=== PATIENT | female | born 1935 | race Caucasian/White ===

== ENCOUNTER 2017-11-12 07:25 | Inpatient (IN) ==
[2017-11-12] MEDS ORDERED: 0.9 % Sodium Chloride 1,000 ML IVC ONE ×2 (07:37→08:28)
[2017-11-12] MEDS ORDERED: Ipratropium/Albuterol Neb 3 ML IH ONE (07:37)
--- NOTE | 2017-11-12 07:45 | Emergency Department Note ---
Disposition Clinical Impression: Hypoxia Pneumonia Qualifiers: Pneumonia type: due to unspecified organism Laterality: right Lung location: lower lobe of lung Qualified Code(s): J18.1 - Lobar pneumonia, unspecified organism Disposition: Admitted As Inpatient Condition: Fair Time of Disposition: 10:00 SOB HPI - General Chief Complaint: ED Dizziness Stated Complaint: KRYSTIAN, dizziness,"cold" Time Seen by Provider: 11/12/17 07:28 Source: patient Mode of arrival: ambulatory Limitations: no limitations Nursing Notes Reviewed: Yes Vital Signs Reviewed: Yes - History of Present Illness Patient is an 82-year-old female with a past medical history of hypertension and anxiety that presents to the ED with chief complaint cough, chills and shortness of breath. Patient states that she developed a cough last Wednesday. States she saw her PCP on Wednesday who told her that her lungs sounded clear and started her on cough medicine. Patient states despite being on the cough medicine her cough has gotten worse and now she is short of breath with chills. Family at bedside and state patient stopped cough medicine yesterday because it was giving her a headache. States she doesn't have a headache now. However, pt does report generalized weakness and feeling very lightheaded during coughing episodes and occasionally with ambulation. Pt Subjective Complaint: shortness of breath, cough Onset (ago): day(s) (6 days) Severity: moderate Consistency/Duration: intermittent, gradually worsening Improves with: nothing Worsens with: nothing Associated symptoms: Reports: denies other symptoms, chest pain (only with coughing), cough. Denies: pain with inspiration, fever, wheezing, sputum production, orthopnea, lower extremity pain, polyuria, polydipsia, parasthesias , palpitations, hemoptysis, diaphoresis, nausea/vomiting, syncope, abdominal pain, rash, sense of impending doom Treatment prior to arrival: none Cough present: Yes Cough Description: Involuntary Cough Frequency: Intermittent Sputum production: No Sputum Amount: None - Related Data Home oxygen amount: none Home Medications Medication Instructions Recorded Confirmed Amlodipine Besylate 10 mg PO DAILY 11/12/17 11/12/17 Calcitonin,[place],Synthetic 1 spr NS AD 11/12/17 11/12/17 [Calcitonin-[place]] Calcium Carbonate/Vitamin D3 1 tab PO TID 11/12/17 11/12/17 [Oyster Shell Calcium-Vit D Tab] LORazepam [Ativan] 1 tab PO BID PRN 11/12/17 11/12/17 Metoprolol Tartrate [Lopressor] 50 mg PO BID 11/12/17 11/12/17 Nortriptyline [Pamelor] 25 mg PO DAILY 11/12/17 11/12/17 Allergies Allergy/AdvReac Type Severity Reaction Status Date / Time codeine Allergy Hives Verified 08/09/16 10:06 Penicillins Allergy Hives Verified 08/09/16 10:06 Sulfa (Sulfonamide Allergy Hives Verified 08/09/16 10:06 Antibiotics) All systems ED: reviewed and negative except as stated. Review of Systems: As Per HPI Constitutional: Reports: chills, weakness (generalized). Denies: fever Eyes: Denies: eye pain, eye discharge, vision change ENT ED: Denies: ear pain, throat pain, dental pain, congestion, dysphagia Cardiovascular: Reports: chest pain (ONLY during coughing episodes. ) Respiratory: Reports: cough, dyspnea, wheezes. Denies: hemoptysis, stridor, sputum production Gastrointestinal: Denies: abdominal pain, nausea, vomiting, diarrhea, constipation, hematemesis, melena, hematochezia Genitourinary: Denies: urgency, dysuria, frequency, hematuria Musculoskeletal: Reports: back pain (upper back pain). Denies: neck pain Integumentary: Denies: rash Neurological: Denies: headache, weakness, numbness, paresthesias, confusion, abnormal gait, vertigo Endocrine: Denies: fatigue Past Medical History - Past Medical History Source: patient Medical history: Reports: hypertension Psychiatric history: Reports: anxiety - Social History Smoking Status: Never smoker Smokeless Tobacco Status: No Alcohol use: Reports: none Drug use: Reports: none Physical Exam - General Limitations: no limitations General appearance: alert, in no apparent distress - Head Head exam: atraumatic, normocephalic, normal inspection - Eye Eye exam: Present: normal appearance, PERRL, EOMI - ENT ENT exam: normal exam, normal oropharynx, mucous membranes moist, TM's normal bilaterally - Neck Neck exam: Present: normal inspection, full ROM, trachea midline. Absent: tenderness, meningismus, lymphadenopathy, thyromegaly - Chest Chest inspection: Present: normal inspection, symmetric chest wall rise - Respiratory Respiratory exam: Present: wheezes, other (Decreased air movement right upper and lower lobe). Absent: respiratory distress, accessory muscle use, prolonged expiratory phase - Cardiovascular Cardiovascular exam: Present: normal rhythm, tachycardia, normal heart sounds - Abdominal Exam Abdominal exam: Present: soft, Non-Tender, normal bowel sounds. Absent: tenderness, distention, guarding, rebound, rigidity - Extremities Exam Extremities exam: Present: normal inspection. Absent: pedal edema - Expanded Lower Extremity Exam Gait: observed and normal - Back Exam Back exam: Present: normal inspection, full ROM. Absent: tenderness, CVA tenderness (R), CVA tenderness (L) - Neurological Exam Neurological exam: Present: alert, oriented X3, CN II-XII intact - Psychiatric Psychiatric exam: Present: normal affect, normal mood - Skin Skin exam: Present: warm, dry, intact, normal color. Absent: rash, cyanosis, diaphoresis Course Course Narrative: Patient is an 82-year-old female with a past medical history of hypertension and anxiety that presents to the ED with chief complaint cough, chills and shortness of breath. Patient states that she developed a cough last Wednesday. States she saw her PCP on Wednesday who told her that her lungs sounded clear and started her on cough medicine. Patient states despite being on the cough medicine her cough has gotten worse and now she is short of breath with chills. Family at bedside and state patient stopped cough medicine yesterday because it was giving her a headache. States she doesn't have a headache now. However, pt does report generalized weakness and feeling very lightheaded during coughing episodes and occasionally with ambulation. Pt denies any chest pain but states sometimes her chest samuels/hurts while coughing. She denies any neck pain/ stiffness, urinary symptoms, abdominal pain or headache. On arrival patient was febrile temp was 102.4. Patient's O2 was 89-90% on room air. States she is not on oxygen at home. Head normocephalic. No signs of external trauma. Eyes normal inspection. PERRLA. Extraocular movements intact. ENT within normal limits. Airway patent. Neck supple, full range of motion, nontender. No signs of meningeal irritation. Heart RRR. Lungs: Mild wheezing with diffuse air movement. No rhonchi present. Abdomen soft, nontender. Back normal inspection, nontender. Extremities within normal limits. No pedal edema. Neuro no focal neurological deficits noted on exam. Plan to obtain labs, chest x-ray at this time. IV fluids and Tylenol given. Breathing treatments ordered. Plan to reevaluate EKG sinus tach with nonspecific ST and T wave changes. Xray: shows Stable cardiomegaly. Vague airspace opacities in the right parahilar regions, may be related to mild pulmonary edema versus early pneumonia. Patient started on Levaquin. Blood cultures obtained. HR and fever improved with hydration and Tylenol. Plan to admit patient to medicine for pneumonia. Pt and family agree with tx plan. Dr. Richter had [id number] time with patient and agrees with my assessment and treatment plan. Patient stable to be transferred to the floor. Discussed case with Dr. Ballesteros. He will accept pt. No other request at this time. Vital Signs Temperature 102.4 F H 11/12/17 07:32 Pulse Rate 131 11/12/17 07:32 Respiratory Rate 18 11/12/17 07:32 Blood Pressure 176/90 11/12/17 07:32 O2 Sat by Pulse Oximetry 92 11/12/17 07:32 Temperature 99.3 F 11/12/17 09:27 Pulse Rate 116 11/12/17 09:27 Respiratory Rate 20 11/12/17 10:30 Blood Pressure 129/56 11/12/17 10:30 O2 Sat by Pulse Oximetry 94 11/12/17 09:27 Oxygen Delivery Oxygen Delivery Nasal Cannula Shortness of Breath/Dyspnea - Medical Records Medical records reviewed: Yes I reviewed the patient's medical records. - Lab Data Lab results reviewed: Yes I reviewed the patient's lab results. Result diagrams: 11/12/17 08:03 11/12/17 08:03 Lab Results 11/12/17 11/12/17 11/12/17 Range/Units 08:03 08:03 08:03 WBC 10.8 (4.3-11.1) K/mcL RBC 3.90 (3.82-4.97) M/mcL Hgb 11.9 (11.5-15.4) g/dL Hct 35.9 (35.3-44.9) % MCV 92.1 (83.0-100.0) fL MCH 30.5 (28.0-33.3) pg MCHC 33.1 (31.6-35.5) g/dL RDW 12.3 (11.5-14.5) % Plt Count 173 (140-400) K/mcL MPV 9.1 L (9.4-12.4) fL Immature Gran % 0.4 (0-4) % Seg Neutrophils % 83.8 % Lymphocytes % 6.3 % Monocytes % 9.2 % Eosinophils % 0.2 % Basophils % 0.1 % Neutrophils # 9.1 H (1.6-8.9) K/mcL Lymphocytes # 0.7 (0.6-4.6) K/mcL Monocytes # 1.0 (0.0-1.3) K/mcL Eosinophils # 0.0 (0.0-0.6) K/mcL Basophils # 0.0 (0.0-0.2) K/mcL Sodium 134 L (136-145) mEq/L Potassium 3.8 (3.5-5.1) mEq/L Chloride 99 (98-107) mEq/L Carbon Dioxide 26 (23-29) mEq/L BUN 20 (8-23) mg/dL Creatinine 0.97 (0.60-1.20) mg/dL Est GFR ( Amer) > 60 (> 60) Est GFR (Non-Af Amer) 55 L (> 60) BUN/Creatinine Ratio 21 (6-26) Glucose 111 H (70-105) mg/dL Calculated Osmolality 281 (280-300) Lactic Acid 1.8 (0.5-2.2) mmol/L Calcium 9.1 (8.6-10.3) mg/dL Troponin I (< 0.04) ng/mL B-Natriuretic Peptide (Less than 100) pg/mL Urine Color (Yellow) Urine Clarity (Clear) Urine pH (5.0-8.0) pH Units Ur Specific [place] (1.010-1.025) Urine Protein (Neg-Trace) mg/dL Urine Glucose (UA) (Normal) mg/dL Urine Ketones (Negative) mg/dL Urine Blood (Negative) Urine Nitrite (Negative) Urine Bilirubin (Negative) Urine Urobilinogen (Normal) mg/dL Ur Leukocyte Esterase (Negative) Urine Microscopic RBC (0-3) per hpf Ur Squamous Epith Cells (None-Few) per lpf Ur Culture Indicated? (NO) 11/12/17 11/12/17 11/12/17 Range/Units 08:03 08:03 09:13 WBC (4.3-11.1) K/mcL RBC (3.82-4.97) M/mcL Hgb (11.5-15.4) g/dL Hct (35.3-44.9) % MCV (83.0-100.0) fL MCH (28.0-33.3) pg MCHC (31.6-35.5) g/dL RDW (11.5-14.5) % Plt Count (140-400) K/mcL MPV (9.4-12.4) fL Immature Gran % (0-4) % Seg Neutrophils % % Lymphocytes % % Monocytes % % Eosinophils % % Basophils % % Neutrophils # (1.6-8.9) K/mcL Lymphocytes # (0.6-4.6) K/mcL Monocytes # (0.0-1.3) K/mcL Eosinophils # (0.0-0.6) K/mcL Basophils # (0.0-0.2) K/mcL Sodium (136-145) mEq/L Potassium (3.5-5.1) mEq/L Chloride (98-107) mEq/L Carbon Dioxide (23-29) mEq/L BUN (8-23) mg/dL Creatinine (0.60-1.20) mg/dL Est GFR ( Amer) (> 60) Est GFR (Non-Af Amer) (> 60) BUN/Creatinine Ratio (6-26) Glucose (70-105) mg/dL Calculated Osmolality (280-300) Lactic Acid (0.5-2.2) mmol/L Calcium (8.6-10.3) mg/dL Troponin I < 0.03 (< 0.04) ng/mL B-Natriuretic Peptide 134 H (Less than 100) pg/mL Urine Color Yellow (Yellow) Urine Clarity Clear (Clear) Urine pH 6.0 (5.0-8.0) pH Units Ur Specific [place] 1.019 (1.010-1.025) Urine Protein 30 H (Neg-Trace) mg/dL Urine Glucose (UA) Normal (Normal) mg/dL Urine Ketones Negative (Negative) mg/dL Urine Blood Small H (Negative) Urine Nitrite Negative (Negative) Urine Bilirubin Negative (Negative) Urine Urobilinogen Normal (Normal) mg/dL Ur Leukocyte Esterase Negative (Negative) Urine Microscopic RBC 0-3 (0-3) per hpf Ur Squamous Epith Cells Few (None-Few) per lpf Ur Culture Indicated? NO (NO) - Radiology Data Radiology results reviewed: Yes I reviewed the patient's radiology results. - EKG Data EKG attestation: Yes I reviewed and interpreted this EKG. EKG shows normal: Reports: sinus rhythm Rate: Reports: tachycardia Rhythm: Reports: NSR [place]/QRS: Reports: normal Interpretation: Reports: nonspecific ST-T wave changes Attestation Statement - Attestation Attestation: I, Danny Richter DO have provided [id number] time during the care of this patient. Detailed review the presentation, symptoms, medical history were discussed and reviewed with the mid-level provider Gisela Richter PA-C, PA-C/RELATIONSHIP MANAGER. Medical intervention labs and imaging studies were reviewed in detail. See full documentation of physical exam and course of care in the mid-level provider 's note. I agree with the determined course of care, medical intervention and disposition put forth by the mid-level provider. See below documentation for changes or alterations in documentation. 82-year-old female presents to emergency room with nonproductive cough fever and chills generalized malaise a last several days. Triage vital signs are heart rate of 126, temperature 102.1. Patient does appear to be slightly dry. Head is atraumatic pupils are reactive mucous membranes are dry oropharynx is patent she has no stridor no trismus. She has no cervical lymphadenopathy. Chest range of motion of the neck in flexion and extension and rotation without any pain or symptoms. Her lungs was to be clear. She does have some central coarse breath sounds are noted but clear easily on coughing. Patient's heart is regular but tachycardic. Abdomen is soft nontender nondistended with no guarding or rigidity. Patient denies any rash or lesions. She has no signs of acute neurologic deficit grossly. Cranial nerves III through XII are grossly intact. She moves her upper and lower stomach the purpose and does appear to be in the toes on a significant signs of ataxia. Vital signs will be evaluated and treated. Patient is concerning for infectious etiology including pneumonia at this time. Patient with influenza swab checked as well as chest x-ray EKG labs including blood cultures CBC troponin lactic acid. Antibiotic regimen will be started once we have definitive treatment course evaluation. Symptom presentation is concerning for infectious etiology involving the pulmonary tree. Patient will most likely need admission secondary to the hypoxia fever and tachycardia. 2.5 L of fluid were provided to the patient for appropriate symptomatically treatment at this time. Disposition pending workup and treatment course. See detailed documentation of physical exam, medical intervention, medical decision-making and disposition in the mid-level provider' s note. 0900 Patient found to have pneumonia on the right side. This does make a surgical criteria evaluation secondary to infectious etiology massage. White blood cell count was normal. 0945 Patient found to have pneumonia. Antibiotic regimen started. Fluid resuscitation has been provided. Patient's heart rate is remaining around 105 after the fluids were given. Low clinical concern for pulmonary emboli or other underlying etiology of this time. EKG was stable. Admission process will be completed for what appears to be an infectious etiology causing symptoms on presentation here today. Patient was provided appropriate resuscitation as well as fluid boluses here. No critical care was applied to the patient and the treatment course. Admission process completed this time
[2017-11-12 08:15] LABS: Basophils % 0.1 %; Eosinophils % 0.2 %; Hematocrit 35.9 % (35.3-44.9); Hemoglobin 11.9 g/dL (11.5-15.4); Immature Granulocytes % 0.4 % (0-4); Lymphocytes # 0.7 K/mcL (0.6-4.6); Lymphocytes % 6.3 %; Mean Corpuscular HGB Conc 33.1 g/dL (31.6-35.5); Mean Corpuscular Hemoglobin 30.5 pg (28.0-33.3); Mean Corpuscular Volume 92.1 fL (83.0-100.0); Mean Platelet Volume 9.1 fL (9.4-12.4); Monocytes % 9.2 %; Neutrophils # 9.1 K/mcL (1.6-8.9); Platelet Count 173 K/mcL (140-400); Red Cell Distribution Width 12.3 % (11.5-14.5); Segmented Neutrophils % 83.8 %
[2017-11-12] MEDS ORDERED: Levofloxacin 750 MG/150 ML 750 MG/150 ML BAG IVPB ONE (08:28)
[2017-11-12 08:42] LABS: BUN/Creatinine Ratio 21 (6-26); Blood Urea Nitrogen 20 mg/dL (8-23); Calcium 9.1 mg/dL (8.6-10.3); Carbon Dioxide 26 mEq/L (23-29); Chloride 99 mEq/L (98-107); Glucose 111 mg/dL (70-105); Osmolality,Calculated 281 (280-300); Potassium 3.8 mEq/L (3.5-5.1); Sodium 134 mEq/L (136-145); eGFR For African Americans > 60 (> 60); eGFR For Non-African Americans 55 (> 60)
[2017-11-12 09:23] LABS: Bilirubin,Urine Negative (Negative); Blood,Urine Small (Negative); Clarity,Urine Clear (Clear); Color,Urine Yellow (Yellow); Glucose,Urine (UA) Normal (Normal); Ketones,Urine Negative (Negative); Leukocyte Esterase,Urine Negative (Negative); Nitrite,Urine Negative (Negative); Protein,Urine 30 mg/dL (Neg-Trace); Specific Gravity,Urine 1.019 (1.010-1.025); Urobilinogen,Urine Normal (Normal)
--- NOTE | 2017-11-12 09:53 | Internal Med History&Physical ---
Date of Encounter: 11/12/17 Time of Encounter: 09:50 Assessment and Plan (1) HTN (hypertension) Current visit: Yes Status: Chronic Chronic and well controlled resume home medication Qualifiers: Hypertension type: essential hypertension Qualified Code(s): I10 - Essential (primary) hypertension (2) Hyperlipidemia Current visit: Yes Status: Chronic Chronic wound recheck Qualifiers: Hyperlipidemia type: pure hypercholesterolemia Qualified Code(s): E78.00 - Pure hypercholesterolemia, unspecified; E78.0 - Pure hypercholesterolemia (3) Obesity Current visit: Yes Status: Chronic Qualifiers: Obesity type: due to excess calories Obesity classification: adult class 2 (BMI 35 - 39.9) Serious obesity comorbidity presence: unspecified whether serious comorbidity present Body mass index: unspecified BMI Qualified Code( s): E66.09 - Other obesity due to excess calories (4) Anxiety Current visit: Yes Status: Chronic Chronic resume home medication (5) Pneumonia Current visit: Yes Status: Acute Acute right lower lobe pneumonia patient started on Levaquin and will continue that IV Qualifiers: Pneumonia type: due to unspecified organism Laterality: right Lung location: lower lobe of lung Qualified Code(s): J18.1 - Lobar pneumonia, unspecified organism Internal Medicine - H&P: HPI Chief complaint: cough and sob Admitted From: Emergency Dept Plans for Post Hospital Care: Home History of present illness: Ms. Stack is a 82 year old female Patient with history of hypertension, obesity, high cholesterol, anxiety, patient presented to the emergency room with Cough that is nonproductive chills and shortness of breath she was seen by primary physician on Wednesday and was prescribed some cough medicine But she continued to cough and believe the cough medicine was given her headache so she stopped the medicine yesterday . the cough has become worse with increased shortness of breath and fever and chills she came into the emergency room temp 102.4 sat 89% chest x- ray consistent with right lower lobe pneumonia patient will be admitted for treatment of pneumonia denied any nausea vomiting no diarrhea flu screen has been done still pending Past Med Surg Social Fam HX - Past Medical History Medical history: hypertension Psychiatric history: anxiety - Social History Smoking Status: Never smoker Smokeless Tobacco Status: No Alcohol use: none Drug use: none Internal Medicine - H&P: Meds Amlodipine Besylate 10 mg PO DAILY 11/12/17 [History] Calcitonin,[place],Synthetic [Calcitonin-[place]] 1 spr NS AD 11/12/17 [History] Calcium Carbonate/Vitamin D3 [Oyster Shell Calcium-Vit D Tab] 1 tab PO TID 11/12 [History] LORazepam [Ativan] 1 tab PO BID PRN 11/12/17 [History] Metoprolol Tartrate [Lopressor] 50 mg PO BID 11/12/17 [History] Nortriptyline [Pamelor] 25 mg PO DAILY 11/12/17 [History] 3 Allergy/AdvReac Type Severity Reaction Status Date / Time codeine Allergy Hives Verified 08/09/16 10:06 Penicillins Allergy Hives Verified 08/09/16 10:06 Sulfa (Sulfonamide Allergy Hives Verified 08/09/16 10:06 Antibiotics) All Systems PM: A 10-system review of systems was performed and is negative for pertinent findings except as documented above in the HPI. - Constitutional Constitutional: chills, fever(s), lethargy, weakness - EENT Eyes: no change in vision, no discharge, no pain, no photophobia Ears: no ear discharge, no ear pain, no tinnitus Nose, mouth and throat: no dysphagia, no nasal discharge, no neck pain, no sore throat - Cardiovascular Cardiovascular ROS IM: no chest pain, no diaphoresis, no dyspnea, no lightheadedness, no palpitations, no syncope - Respiratory Respiratory: cough, wheezing, excessive phlegm production - Gastrointestinal Gastrointestinal: no abdominal pain, no diarrhea, no hematemesis, no hematochezia, no melena, no nausea, no vomiting - Genitourinary Genitourinary: no change in urinary stream, no dysuria, no flank pain, no hematuria - Musculoskeletal Musculoskeletal ROS IM: no numbness, no tingling - Integumentary Integumentary IM: no rash, no unusual bruising - Constitutional Vitals: Temp Pulse Resp BP Pulse Ox 99.3 F 116 20 133/52 94 11/12/17 09:27 11/12/17 09:27 11/12/17 09:27 11/12/17 09:27 11/12/17 09:27 General appearance: Present: A&O X 3 - Eye Eye exam: Present: PERRL, conjuntiva pink, sclera anicteric Pupils: Present: PERRL - Neck Neck exam general surgery: Present: supple, trachea midline. Absent: lymphadenopathy - Respiratory Respiratory exam: Present: rhonchi - Cardiovascular Cardiovascular exam: Present: RRR, +S1, +S2. Absent: diastolic murmur, gallop, rubs, systolic murmur - GI/Abdominal GI/Abdominal exam: Present: normal bowel sounds, soft, no peritoneal signs. Absent: distended, tenderness Internal Med - H&P Results - Labs CBC & Chem 7: 11/12/17 08:03 11/12/17 08:03 Labs: Short CBC 11/12/17 Range/Units 08:03 WBC 10.8 (4.3-11.1) K/mcL Hgb 11.9 (11.5-15.4) g/dL Hct 35.9 (35.3-44.9) % Plt Count 173 (140-400) K/mcL Neutrophils # 9.1 H (1.6-8.9) K/mcL BMP 11/12/17 08:03 Sodium 134 L Potassium 3.8 Chloride 99 Carbon Dioxide 26 BUN 20 Creatinine 0.97 Glucose 111 H Calcium 9.1 Cardiac Enzymes 11/12/17 Range/Units 08:03 Troponin I < 0.03 (< 0.04) ng/mL Urine 11/12/17 Range/Units 09:13 Urine Color Yellow (Yellow) Urine Clarity Clear (Clear) Urine pH 6.0 (5.0-8.0) pH Units Ur Specific [place] 1.019 (1.010-1.025) Urine Protein 30 H (Neg-Trace) mg/dL Urine Glucose (UA) Normal (Normal) mg/dL - Impressions ITS Impressions Chest X-Ray 11/12/17 07:39 IMPRESSION: Stable cardiomegaly. Vague airspace opacities in the right parahilar regions, may be related to mild pulmonary edema versus early pneumonia. D/ / Baljinder Hernandez MD / Baljinder Hernandez MD Interpreting Provider: Baljinder Hernandez MD
[2017-11-12 09:55] LABS: RBC,Urine 0-3 per hpf (0-3); Squamous Epithelial Cell,Urine Few per lpf (None-Few)
[2017-11-12] MEDS ORDERED: Naloxone 0.4 MG/ML INJ IVP PRN ×2 (12:48→12:50)
[2017-11-12] MEDS ORDERED: *HR* OxyCODONE Immed Rel 5 MG TABLET PO PRN (12:50)
[2017-11-12] MEDS ORDERED: *HR* LORazepam 0.5 MG TABLET PO PRN (12:52)
[2017-11-12] MEDS: Ipratropium/Albuterol Neb 3 ML IH PRN ×2 (13:31→20:41)
[2017-11-12] MEDS: 0.9 % Sodium Chloride 1,000 ML IVC SCH ×3 (13:36→18:51)
[2017-11-12] MEDS: Acetaminophen 325 MG TABLET PO PRN (15:37)
--- NOTE | 2017-11-12 18:08 | Electrocardiograph Report ---
[place] [id number] Test Date: 2017-11-12 Pat Name: Sophia Stack Department: 104 Room: 3A14 Gender: F Faith Doctor: [facility] : [id number] Requested By: Gisela Tobias Order Number: [id number] Reading MD: Paul Saenz Measurements Intervals [place] Rate: 120 P: 27 IA: 187 QRS: -15 QRSD: 81 T: 57 QT: 277 QTc: 348 Interpretive Statements SINUS TACHYCARDIA MINIMAL ST DEPRESSION ABNORMAL RHYTHM ECG Electronically Signed On 11-12-2017 18:06:14 EST by Paul Saenz
[2017-11-12] MEDS: Melatonin 3 MG TABLET PO SCH (22:18)
[2017-11-13] MEDS: Acetaminophen 325 MG TABLET PO PRN ×2 (00:19→12:50)
[2017-11-13] MEDS: 0.9 % Sodium Chloride 1,000 ML IVC SCH ×2 (03:18)
[2017-11-13 04:58] LABS: Hematocrit 27.7 % (35.3-44.9); Mean Corpuscular HGB Conc 33.2 g/dL (31.6-35.5); Mean Corpuscular Hemoglobin 30.8 pg (28.0-33.3); Mean Corpuscular Volume 92.6 fL (83.0-100.0); Mean Platelet Volume 9.3 fL (9.4-12.4); Platelet Count 127 K/mcL (140-400); Red Blood Count 2.99 M/mcL (3.82-4.97); Red Cell Distribution Width 12.6 % (11.5-14.5)
[2017-11-13 05:12] LABS: Hemoglobin 9.2 g/dL (11.5-15.4)
[2017-11-13 05:25] LABS: Alanine Aminotransferase 14 Units/L (7-52); Albumin 2.7 g/dL (3.5-5.7); Albumin/Globulin Ratio 1.1 (1.1-2.2); Alkaline Phosphatase 49 Units/L (34-104); Aspartate Amino Transferase 24 Units/L (13-39); BUN/Creatinine Ratio 14 (6-26); Bilirubin,Total 0.6 mg/dL (0.3-1.0); Blood Urea Nitrogen 13 mg/dL (8-23); Calcium 7.7 mg/dL (8.6-10.3); Carbon Dioxide 24 mEq/L (23-29); Chloride 108 mEq/L (98-107); Chol/HDL Ratio 2.9 (0-4.9); Cholesterol 109 mg/dL (< 200); Globulin 2.4 g/dL (2.4-3.5); Glucose 119 mg/dL (70-105); HDL Cholesterol 37 mg/dL (40-59); LDL Cholesterol,Calculated 64 mg/dL (0-99); Magnesium 1.6 mg/dL (1.6-2.6); Osmolality,Calculated 283 (280-300); Potassium 3.6 mEq/L (3.5-5.1); Sodium 136 mEq/L (136-145); Total Protein 5.1 g/dL (6.4-8.9); Triglycerides 38 mg/dL (< 150); eGFR For African Americans > 60 (> 60); eGFR For Non-African Americans 59 (> 60)
[2017-11-13] MEDS: Cholecalciferol (D-3) 1,000 UNIT TABLET PO SCH (08:52)
[2017-11-13] MEDS: amLODIPine 5 MG TABLET PO SCH (08:52)
--- NOTE | 2017-11-13 08:55 | Internal Med Progress Note ---
Date of Encounter: 11/13/17 Time of Encounter: 08:53 - Assessment and plan (1) Community acquired pneumonia Current Visit: Yes Status: Acute Assessment and plan: Acute hypoxic respiratory failure secondary to sepsis due to community-acquired pneumonia, unknown agent Stop Levaquin, start Rocephin and azithromycin Blood cultures pending IVF Qualifiers: Laterality: right Lung location: lower lobe of lung Qualified Code(s): J18.1 - Lobar pneumonia, unspecified organism (2) Acute respiratory failure with hypoxia Current Visit: Yes Status: Acute (3) HTN (hypertension) Current Visit: Yes Status: Chronic Assessment and plan: continue amlodipine Qualifiers: Hypertension type: essential hypertension Qualified Code(s): I10 - Essential (primary) hypertension (4) Hyperlipidemia Current Visit: Yes Status: Chronic Qualifiers: Hyperlipidemia type: pure hypercholesterolemia Qualified Code(s): E78.00 - Pure hypercholesterolemia, unspecified; E78.0 - Pure hypercholesterolemia (5) CKD (chronic kidney disease) stage 3, GFR 30-59 ml/min Current Visit: Yes Status: Acute (6) Hyponatremia Current Visit: Yes Status: Acute Assessment and plan: resolved - Subjective Interval history: Very congested, coughing constantly, had a fever 100.8 and had fevers of more than 102 at home, has chest pain only when she coughs, denies any abdominal pain , no dysuria. Feels very weak - Constitutional Vitals: Temp Pulse Resp BP Pulse Ox 98.0 F 85 18 132/76 95 11/13/17 06:53 11/13/17 06:53 11/13/17 06:53 11/13/17 06:53 11/13/17 06:53 General appearance: Present: A&O X 3 - Head Head exam: Present: atraumatic, normocephalic - Eye Eye exam: Present: PERRL, conjuntiva pink, sclera anicteric Pupils: Present: PERRL - Neck Neck exam general surgery: Present: supple, trachea midline. Absent: lymphadenopathy - Respiratory Respiratory exam: Present: CTAB, rales (Diffuse crackles and upper airway congestion). Absent: accessory muscle use, rhonchi, wheezes - Cardiovascular Cardiovascular exam: Present: RRR, +S1, +S2. Absent: diastolic murmur, gallop, rubs, systolic murmur - GI/Abdominal GI/Abdominal exam: Present: normal bowel sounds, soft, no peritoneal signs. Absent: distended, tenderness - Extremities Exam Extremities exam: Present: warm, radial pulses palpable and symmetrical. Absent : calf tenderness, cyanotic, pedal edema - Neurological Exam Neurological exam: Present: CN II-XII intact, oriented X3, no focal deficits. Absent: pronater drift, facial droop, speech deficit - Skin Skin exam: Present: dry, intact Internal Medicine: Result - Labs CBC & Chem 7: 11/13/17 04:38 11/13/17 04:38 Labs: Short CBC 11/13/17 Range/Units 04:38 WBC 12.0 H (4.3-11.1) K/mcL Hgb 9.2 L D (11.5-15.4) g/dL Hct 27.7 L (35.3-44.9) % Plt Count 127 L (140-400) K/mcL BMP 11/13/17 04:38 Sodium 136 Potassium 3.6 Chloride 108 H Carbon Dioxide 24 BUN 13 Creatinine 0.91 Glucose 119 H Calcium 7.7 L Liver Function 11/13/17 Range/Units 04:38 Total Bilirubin 0.6 (0.3-1.0) mg/dL AST 24 (13-39) Units/L ALT 14 (7-52) Units/L Alkaline Phosphatase 49 (34-104) Units/L Albumin 2.7 L (3.5-5.7) g/dL Consult Discharge Plan - Plan Referrals: Kate Ramírez MD [Primary Care Provider] - 11/22/17 10:45 am
[2017-11-13] MEDS: cefTRIAXone 1,000 MG in Water for inj. (sterile) 10 ML IVP SCH (10:07)
[2017-11-13] MEDS: Azithromycin 500 MG in D5% in Water 250 ML IVPB SCH (10:07)
[2017-11-13] MEDS: Ipratropium/Albuterol Neb 3 ML IH PRN (11:47)
[2017-11-13] MEDS ORDERED: Albuterol 2.5 MG/3 ML NEBULIZER IH PRN (12:16)
[2017-11-13] MEDS: Ipratropium/Albuterol Neb 3 ML IH SCH ×3 (15:37→23:19)
[2017-11-13] MEDS ORDERED: Ipratropium/Albuterol Neb 3 ML IH SCH (16:00)
[2017-11-13] MEDS: Melatonin 3 MG TABLET PO SCH (20:19)
[2017-11-13] MEDS ORDERED: Melatonin 3 MG TABLET PO SCH (21:00)
[2017-11-14] MEDS: Ipratropium/Albuterol Neb 3 ML IH SCH ×6 (04:07→23:32)
[2017-11-14 04:36] LABS: Hematocrit 32.9 % (35.3-44.9); Hemoglobin 10.6 g/dL (11.5-15.4); Mean Corpuscular HGB Conc 32.2 g/dL (31.6-35.5); Mean Corpuscular Hemoglobin 30.1 pg (28.0-33.3); Mean Corpuscular Volume 93.5 fL (83.0-100.0); Mean Platelet Volume 9.3 fL (9.4-12.4); Platelet Count 173 K/mcL (140-400); Red Blood Count 3.52 M/mcL (3.82-4.97); Red Cell Distribution Width 12.9 % (11.5-14.5)
[2017-11-14 05:03] LABS: BUN/Creatinine Ratio 15 (6-26); Blood Urea Nitrogen 13 mg/dL (8-23); Carbon Dioxide 25 mEq/L (23-29); Chloride 104 mEq/L (98-107); Glucose 120 mg/dL (70-105); Osmolality,Calculated 283 (280-300); Potassium 3.7 mEq/L (3.5-5.1); Sodium 136 mEq/L (136-145); eGFR For African Americans > 60 (> 60); eGFR For Non-African Americans > 60 (> 60)
--- NOTE | 2017-11-14 09:00 | Internal Med Progress Note ---
Date of Encounter: 11/14/17 Time of Encounter: 08:56 - Assessment and plan (1) Acute respiratory failure with hypoxia Current Visit: Yes Status: Acute Assessment and plan: Acute hypoxic respiratory failure secondary to acute pulmonary edema likely triggered by sepsis due to acute community-acquired pneumonia, consider possible CHF Oxygen levels dropped to 89% upon admission, had a fever 102.4, still tachycardic Continue Rocephin and azithromycin Start IV Lasix, strict I's and O's and daily weight, check an echocardiogram Chest x-ray showed:Vague airspace opacities in the right parahilar regions, may be related to mild pulmonary edema versus early pneumonia. (2) Pulmonary edema Current Visit: Yes Status: Acute Qualifiers: Chronicity: acute Qualified Code(s): J81.0 - Acute pulmonary edema (3) Community acquired pneumonia Current Visit: Yes Status: Acute Assessment and plan: Acute hypoxic respiratory failure secondary to sepsis due to community-acquired pneumonia, unknown agent Stopped Levaquin Continue Rocephin and azithromycin day #2 Blood cultures pending Discontinued IVF Qualifiers: Laterality: right Lung location: lower lobe of lung Qualified Code(s): J18.1 - Lobar pneumonia, unspecified organism (4) HTN (hypertension) Current Visit: Yes Status: Chronic Assessment and plan: continue amlodipine Qualifiers: Hypertension type: essential hypertension Qualified Code(s): I10 - Essential (primary) hypertension (5) Hyperlipidemia Current Visit: Yes Status: Chronic Qualifiers: Hyperlipidemia type: pure hypercholesterolemia Qualified Code(s): E78.00 - Pure hypercholesterolemia, unspecified; E78.0 - Pure hypercholesterolemia (6) CKD (chronic kidney disease) stage 3, GFR 30-59 ml/min Current Visit: Yes Status: Acute (7) Hyponatremia Current Visit: Yes Status: Acute Assessment and plan: resolved (8) Sepsis Current Visit: Yes Status: Acute Qualifiers: Sepsis type: sepsis due to unspecified organism Qualified Code(s): A41.9 - Sepsis, unspecified organism - Subjective Interval history: Still very congested, coughing constantly, had a fever 100.8 on November 12 and had fevers of more than 102 at home, has chest pain only when she coughs, denies any abdominal pain, no dysuria. Feels very weak - Constitutional Vitals: Temp Pulse Resp BP Pulse Ox 98.6 F 105 16 155/75 94 11/14/17 06:37 11/14/17 06:37 11/14/17 08:14 11/14/17 06:37 11/14/17 08:14 General appearance: Present: A&O X 3 - Head Head exam: Present: atraumatic, normocephalic - Eye Eye exam: Present: PERRL, conjuntiva pink, sclera anicteric Pupils: Present: PERRL - Neck Neck exam general surgery: Present: supple, trachea midline. Absent: lymphadenopathy - Respiratory Respiratory exam: Present: CTAB, rales (Diffuse crackles). Absent: accessory muscle use, rhonchi, wheezes - Cardiovascular Cardiovascular exam: Present: RRR, +S1, +S2. Absent: diastolic murmur, gallop, rubs, systolic murmur - GI/Abdominal GI/Abdominal exam: Present: normal bowel sounds, soft, no peritoneal signs. Absent: distended, tenderness - Extremities Exam Extremities exam: Present: warm, radial pulses palpable and symmetrical. Absent : calf tenderness, cyanotic, pedal edema - Neurological Exam Neurological exam: Present: CN II-XII intact, oriented X3, no focal deficits. Absent: pronater drift, facial droop, speech deficit - Skin Skin exam: Present: dry, intact Internal Medicine: Result - Labs CBC & Chem 7: 11/14/17 04:30 11/14/17 04:30 Labs: Short CBC 11/14/17 Range/Units 04:30 WBC 11.7 H (4.3-11.1) K/mcL Hgb 10.6 L (11.5-15.4) g/dL Hct 32.9 L (35.3-44.9) % Plt Count 173 (140-400) K/mcL [facility] 11/14/17 04:30 Sodium 136 Potassium 3.7 Chloride 104 Carbon Dioxide 25 BUN 13 Creatinine 0.89 Glucose 120 H Calcium 9.0 Consult Discharge Plan - Plan Referrals: Kate Ramírez MD [Primary Care Provider] - 11/22/17 10:45 am
[2017-11-14] MEDS: Azithromycin 500 MG in D5% in Water 250 ML IVPB SCH (09:08)
[2017-11-14] MEDS: cefTRIAXone 1,000 MG in Water for inj. (sterile) 10 ML IVP SCH (09:09)
[2017-11-14] MEDS: amLODIPine 5 MG TABLET PO SCH (09:10)
[2017-11-14] MEDS: Furosemide 40 MG/4 ML VIAL IVP SCH ×2 (09:10→16:23)
[2017-11-14] MEDS: Cholecalciferol (D-3) 1,000 UNIT TABLET PO SCH (09:10)
[2017-11-14] MEDS ORDERED: Levofloxacin 750 MG/150 ML 750 MG/150 ML BAG IVPB SCH (10:00)
[2017-11-14] MEDS: Melatonin 3 MG TABLET PO SCH (20:59)
[2017-11-15] MEDS: Ipratropium/Albuterol Neb 3 ML IH SCH ×3 (04:12→11:58)
[2017-11-15 05:33] LABS: BUN/Creatinine Ratio 13 (6-26); Blood Urea Nitrogen 13 mg/dL (8-23); Carbon Dioxide 30 mEq/L (23-29); Chloride 98 mEq/L (98-107); Glucose 115 mg/dL (70-105); Osmolality,Calculated 283 (280-300); Potassium 3.3 mEq/L (3.5-5.1); Sodium 136 mEq/L (136-145); eGFR For African Americans > 60 (> 60); eGFR For Non-African Americans 52 (> 60)
[2017-11-15] MEDS: Acetaminophen 325 MG TABLET PO PRN (05:45)
[2017-11-15] MEDS: Furosemide 40 MG/4 ML VIAL IVP SCH (07:24)
[2017-11-15] MEDS: amLODIPine 5 MG TABLET PO SCH (07:25)
[2017-11-15] MEDS: cefTRIAXone 1,000 MG in Water for inj. (sterile) 10 ML IVP SCH (07:26)
[2017-11-15] MEDS: Cholecalciferol (D-3) 1,000 UNIT TABLET PO SCH (07:27)
[2017-11-15] MEDS: Azithromycin 500 MG in D5% in Water 250 ML IVPB SCH (07:27)
[2017-11-15 08:14] VITALS: BP 122/77
--- NOTE | 2017-11-15 08:34 | Discharge Summary ---
Date of Encounter: 11/15/17 Time of Encounter: 08:27 - Discharge Diagnosis (1) Acute respiratory failure with hypoxia Priority: Primary Status: Acute Comments: Acute hypoxic respiratory failure secondary to acute pulmonary edema likely triggered by sepsis due to acute community-acquired pneumonia (2) Pulmonary edema Priority: Primary Status: Acute Qualifiers: Chronicity: acute Qualified Code(s): J81.0 - Acute pulmonary edema (3) Community acquired pneumonia Priority: Primary Status: Acute Qualifiers: Laterality: right Lung location: lower lobe of lung Qualified Code(s): J18.1 - Lobar pneumonia, unspecified organism (4) HTN (hypertension) Priority: Secondary Status: Chronic Qualifiers: Hypertension type: essential hypertension Qualified Code(s): I10 - Essential (primary) hypertension (5) Hyperlipidemia Priority: Secondary Status: Chronic Qualifiers: Hyperlipidemia type: pure hypercholesterolemia Qualified Code(s): E78.00 - Pure hypercholesterolemia, unspecified; E78.0 - Pure hypercholesterolemia (6) CKD (chronic kidney disease) stage 3, GFR 30-59 ml/min Priority: Secondary Status: Acute (7) Hyponatremia Priority: Secondary Status: Acute (8) Sepsis Priority: Primary Status: Acute Qualifiers: Sepsis type: sepsis due to unspecified organism Qualified Code(s): A41.9 - Sepsis, unspecified organism - Discharge Medications Prescriptions: Cefdinir [Omnicef] 300 mg PO BID #10 capsule Furosemide [Lasix] 20 mg PO DAILY #7 tablet Potassium Chloride 10 meq PO DAILY #7 tab.er.prt Home Medications: Amlodipine Besylate 10 mg PO DAILY 11/12/17 [History] Calcitonin,[place],Synthetic [Calcitonin-[place]] 1 spr NS AD 11/12/17 [History] Calcium Carbonate/Vitamin D3 [[place] Calcium-Vit D Tab] 1 tab PO TID 11/12 [History] LORazepam [Ativan] 1 tab PO BID PRN 11/12/17 [History] Metoprolol Tartrate [Lopressor] 50 mg PO BID 11/12/17 [History] Nortriptyline [Pamelor] 25 mg PO DAILY 11/12/17 [History] Cefdinir [Omnicef] 300 mg PO BID #10 capsule 11/15/17 [Rx] Furosemide [Lasix] 20 mg PO DAILY #7 tablet 11/15/17 [Rx] Potassium Chloride 10 meq PO DAILY #7 tab.er.prt 11/15/17 [Rx] Allergies/Adverse Reactions: 3 Allergy/AdvReac Type Severity Reaction Status Date / Time codeine Allergy Hives Verified 08/09/16 10:06 Penicillins Allergy Hives Verified 08/09/16 10:06 Sulfa (Sulfonamide Allergy Hives Verified 08/09/16 10:06 Antibiotics) Procedures/tests Complete & Pending: Procedures Performed prior 72 hours Category Date Time Status EV echocardiogram Routine Y 11/14/17 08:54 Completed Date of admission: 11/12/17 09:47 Primary care physician: Kate Ramírez Consults: 11/12/17 12:14 Consult to Pastoral Services [CONS] Routine Comment: - Patient Status Disposition: Home, Self-Care Condition: Fair Overall status at discharge: patient is progressing back to baseline - Discharge Instructions Follow Up With: Kate Ramírez MD [Primary Care Provider] - 11/22/17 10:45 am Additional Instructions: Continue cefdinir for 5 more days. Continue Lasix and potassium supplements for the next 7 days and stop. Follow-up with primary care physician within the next week - Diet and Activity Activity: increase activity as tolerated Diet: low fat, low cholesterol Hospital course: Ms. Stack is a 82 year old female with history of hypertension, obesity, high cholesterol, anxiety, patient presented to the emergency room with Cough that was nonproductive initially, chills and shortness of breath. She was seen by primary physician on Wednesday and was prescribed some cough medicine, but she continued to cough and believe the cough medicine was given her headache so she stopped it. The cough got worse with increased shortness of breath and fever and chills she came into the emergency room , chest x-ray consistent with right lower lobe pneumonia The patient was started on Levaquin but continued to feel worse. Influenza test was negative. Chest x-ray showed:Vague airspace opacities in the right parahilar regions, may be related to mild pulmonary edema versus early pneumonia. Oxygen levels dropped to 89% upon admission, had a fever 102.4, was still tachycardic Was continued Rocephin and azithromycin Was started on IV Lasix for possible pulmonary edema which improve her symptoms considerably. echocardiogram showed an ejection fraction of 60% with no abnormalities - Time Spent with Patient Total time spent providing and/or coordinating discharge services: Greater than 30 minutes (40 min) - Constitutional Vitals: Temp Pulse Resp BP Pulse Ox 98.2 F 90 18 122/77 95 11/15/17 08:13 11/15/17 08:13 11/15/17 08:13 11/15/17 08:13 11/15/17 08:13 General appearance: Present: A&O X 3 - Head Head exam: Present: atraumatic, normocephalic - Eye Eye exam: Present: PERRL, conjuntiva pink, sclera anicteric Pupils: Present: PERRL - Neck Neck exam general surgery: Present: supple, trachea midline. Absent: lymphadenopathy - Respiratory Respiratory exam: Present: CTAB. Absent: accessory muscle use, rales, rhonchi, wheezes - Cardiovascular Cardiovascular exam: Present: RRR, +S1, +S2. Absent: diastolic murmur, gallop, rubs, systolic murmur - GI/Abdominal GI/Abdominal exam: Present: normal bowel sounds, soft, no peritoneal signs. Absent: distended, tenderness - Extremities Exam Extremities exam: Present: warm, radial pulses palpable and symmetrical. Absent : calf tenderness, cyanotic, pedal edema - Neurological Exam Neurological exam: Present: CN II-XII intact, oriented X3, no focal deficits. Absent: pronater drift, facial droop, speech deficit - Skin Skin exam: Present: dry, intact - Attending Attestation The patient desaturated down to 87% while walking, will require oxygen at home at 3 L continuously, prescription provided
--- NOTE | 2017-11-15 10:02 | Physician Discharge Referral ---
Home Health/Hosp Referral Info Transfer to: Home Health Provider in Charge Post Discharge: PCP - Diagnosis (1) Acute respiratory failure with hypoxia Status: Acute (2) Pulmonary edema Status: Acute (3) Community acquired pneumonia Status: Acute (4) HTN (hypertension) Status: Chronic (5) Hyperlipidemia Status: Chronic (6) CKD (chronic kidney disease) stage 3, GFR 30-59 ml/min Status: Acute (7) Hyponatremia Status: Acute (8) Sepsis Status: Acute - Respiratory Orders Oxygen / L per min (3 L continuously) Smoking Cessation: Smoking cessation has been advised. For more information, call the [place] Tobacco Quit Line at 7-177-GGUQ-NOW. Other Treatments: Continue cefdinir for 5 more days. Continue Lasix and potassium supplements for the next 7 days and stop. Follow-up with primary care physician within the next week, continue oxygen therapy at home - Transfer Medications Prescriptions: Cefdinir [Omnicef] 300 mg PO BID #10 capsule Furosemide [Lasix] 20 mg PO DAILY #7 tablet Potassium Chloride 10 meq PO DAILY #7 tab.er.prt Home Medications: Amlodipine Besylate 10 mg PO DAILY 11/12/17 [History] Calcitonin,[place],Synthetic [Calcitonin-[place]] 1 spr NS AD 11/12/17 [History] Calcium Carbonate/Vitamin D3 [Oyster Shell Calcium-Vit D Tab] 1 tab PO TID 11/12 [History] LORazepam [Ativan] 1 tab PO BID PRN 11/12/17 [History] Metoprolol Tartrate [Lopressor] 50 mg PO BID 11/12/17 [History] Nortriptyline [Pamelor] 25 mg PO DAILY 11/12/17 [History] Cefdinir [Omnicef] 300 mg PO BID #10 capsule 11/15/17 [Rx] Furosemide [Lasix] 20 mg PO DAILY #7 tablet 11/15/17 [Rx] Potassium Chloride 10 meq PO DAILY #7 tab.er.prt 11/15/17 [Rx] Allergies/Adverse Reactions: 3 Allergy/AdvReac Type Severity Reaction Status Date / Time codeine Allergy Hives Verified 08/09/16 10:06 Penicillins Allergy Hives Verified 08/09/16 10:06 Sulfa (Sulfonamide Allergy Hives Verified 08/09/16 10:06 Antibiotics) Certification: Further, I certify that my clinical findings support that this patient is homebound (i.e. absences from home require considerable and taxing effort and are for medical reasons or muslim services or infrequently or short duration when for other reasons) because: Homebound Reason: Leaving home requires considerable and taxing effort due to condition Attestation: My signature below is to certify that this patient is under my care and that I, or nurse practitioner, or a physician's assistant professor nurse education working with me, has a face-to -face encounter with this patient.
== END 2017-11-15 12:48 | disposition home or self-care (01) | DRG 871 ==
LOC: EMEROO 07:25 → 3ANU 09:47
PROVIDERS: ADMIT Internal Medicine Cardiovascular Disease; ATTEND Internal Medicine